=== PATIENT | female | born 1955 | race Caucasian/White ===

== ENCOUNTER 2023-01-15 12:21 | Emergency (ER) | payer OTHER ==
[2023-01-15 12:43] VITALS: RESP 16; BMI 32.5
[2023-01-15 13:06] LABS: HEMATOCRIT 38.1 % (32.4-45.2); HEMOGLOBIN 13.1 G/dL (10.7-15.3); MCH 33.5 pg (25.7-33.7); MCHC 34.3 g/dl (32.0-36.0); MEAN CELL VOLUME 97.6 fl (80-96); MEAN PLT VOLUME 7.5 fl (7.5-11.1); PLATELET COUNT 221.5 10^3/uL (134-434); RDW 13.5 % (11.6-15.6); WHITE BLOOD COUNT 8.7 10^3/uL (4.0-10.8)
[2023-01-15 13:28] LABS: ALBUMIN 4.5 g/dl (3.4-5.0); BILIRUBIN,TOTAL 0.7 mg/dl (0.2-1); BLOOD UREA NITROGEN 8.6 mg/dl (7-18); CALCIUM 9.2 mg/dl (8.5-10.1); CREATININE 0.6 mg/dl (0.6-1.3); MAGNESIUM 1.9 mg/dL (1.8-2.4); SGPT/ALT 12.3 U/L (7-52); TOT PROT 6.9 g/dl (6.4-8.2)
[2023-01-15 13:37] LABS: PLATELET ESTIMATE ADEQUATE
[2023-01-15 13:41] LABS: POTASSIUM 4.6 mmol/L (3.5-5.1)
[2023-01-15 15:37] VITALS: BP 143/90; PULSE 78; TEMP 98
[2023-01-15 21:10] LABS: EPITHELIAL CELLS FEW /hpf
== END 2023-01-15 15:37 | disposition home or self-care (01) ==
LOC: FER 12:21
DX: R10.30 Lower abdominal pain, unspecified (principal); R11.0 Nausea; R19.5 Other fecal abnormalities; K59.00 Constipation, unspecified
CPT/HCPCS: 36415; 74176-TC; 80053; 81003; 81015; 82272; 83690; 83735; 85027; 99284-25